=== PATIENT | female | born 1975 ===

== ENCOUNTER 2020-11-28 08:06 | Day surgery (SDC) | payer OTHER ==
[~2020-11-28 08:06] MED LIST: B12 ACTIVE1000 MCG PO; ELIQUIS5 MG PO; PLAQUENIL PO
[2020-11-28] MEDS ORDERED: COLACE100 MG PO (16:17)
[2020-11-28] MEDS ORDERED: PERCOCET 5-3251 EACH PO (16:17)
== END 2020-11-28 19:50 | disposition home or self-care (01) ==
LOC: CIR.AMB 08:06
PROVIDERS: ATTEND Surgery
DX: K60.1 Chronic anal fissure (principal); K62.4 Stenosis of anus and rectum; Z20.822 Contact with and (suspected) exposure to COVID-19